=== PATIENT | male | born 2000 | race African-American/Black ===

== ENCOUNTER 2019-01-28 10:06 | Inpatient (IN) | payer OTHER ==
[~2019-01-28] VITALS: Ht 172.7 cm; Wt 75.6 kg
[2019-01-28 11:27] LABS: HEMATOCRIT 39.5 % (42.0-52.0); MEAN CORPUSCULAR HEMOGLOBIN 27.8 pg (27.0-33.0); MEAN CORPUSCULAR HGB CONC 32.9 g/dl (32.0-36.5); MEAN CORPUSCULAR VOLUME 84.6 fl (80.0-96.0); PLATELET COUNT, AUTOMATED 301 10^3/uL (150-450); RED BLOOD COUNT 4.67 10^6/uL (4.30-6.10)
[2019-01-28 12:09] LABS: ACETAMINOPHEN LEVEL < 2.0 UG/ML (10.0-30.0); ALBUMIN 4.3 GM/DL (3.2-5.2); ALT/SGPT 28 U/L (12-78); BILIRUBIN,DIRECT < 0.1 MG/DL (0.0-0.2); BILIRUBIN,TOTAL 0.4 MG/DL (0.2-1.0); BLOOD UREA NITROGEN 11 MG/DL (7-18); CALCIUM LEVEL 9.8 MG/DL (8.5-10.1); CARBON DIOXIDE LEVEL 29 MEQ/L (21-32); CHLORIDE LEVEL 108 MEQ/L (98-107); CREATININE FOR GFR 0.84 MG/DL (0.70-1.30); ETHYL ALCOHOL (ETHANOL) < 0.003 % (0.000-0.010); GLUCOSE, FASTING 95 MG/DL (70-100); POTASSIUM SERUM 3.8 MEQ/L (3.5-5.1); SALICYLATE LEVEL < 1.7 MG/DL (5.0-30.0); SODIUM LEVEL 143 MEQ/L (136-145); THYROID STIMULATING HORMONE 0.566 uIU/ML (0.463-3.98); TOTAL PROTEIN 7.9 GM/DL (6.4-8.2)
[2019-01-28 13:04] LABS: AMPHETAMINES LEVEL URINE NEGATIVE (NEGATIVE); BARBITURATES URINE NEGATIVE (NEGATIVE); BENZODIAZEPINES URINE NEGATIVE (NEGATIVE); CANNABINOIDS URINE NEGATIVE (NEGATIVE); COCAINE METABOLITE URINE NEGATIVE (NEGATIVE); METHADONE URINE NEGATIVE (NEGATIVE); OPIATES URINE NEGATIVE (NEGATIVE); PHENCYCLIDINE URINE NEGATIVE (NEGATIVE)
[2019-01-28] MEDS ORDERED: LORazepam 1 MG TAB PO PRN (16:45)
[2019-01-28] MEDS ORDERED: traZODone 50 MG TAB PO PRN (16:45)
[2019-01-28] MEDS ORDERED: MOM 30ML SUSPENSION UDC PO PRN (16:45)
[2019-01-28] MEDS ORDERED: MAALOX 30 ML SUSP *UDC PO PRN (16:45)
[2019-01-28] MEDS ORDERED: OLANZapine ORAL DISINTEGRATING TAB 5MG PO PRN (16:45)
[2019-01-28] MEDS ORDERED: ACETAMINOPHEN TAB 650MG DOSE (2X325MG) PO PRN (16:45)
[2019-01-28 17:20] VITALS: BP 124/56
[2019-01-29 06:42] VITALS: BP 109/60
[2019-01-29] MEDS: NICOTINE 21MG/24HR 1 EA TRANSDERMAL TD PRN (08:26)
[2019-01-29] MEDS ORDERED: LORazepam 2 MG TAB PO PRN (10:00)
--- NOTE | 2019-01-29 10:30 | HPEPDOC ---
General Date of Admission Jan 28, 2019 at 16:33 Date of Service: Jan 29, 2019 Chief Complaint The patient is a 18-year-old male admitted with a reason for visit of Unspecified Psychosis. 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 He also says about hearing voices and seeing things and says that his friends have been lying to him. I am seeing the patient here for medical history and physical. He denies any medical complaints today. Home Medications No Active Prescriptions or Reported Meds Allergies Coded Allergies: Kiwi (Verified Allergy, Intermediate, discomfort to throat, 01/28/19) vomiting, rash banana (Verified Allergy, Intermediate, vomiting, 01/28/19) discomfort to throat latex (Verified Allergy, Intermediate, 01/28/19) pt reports adverse reaction to bananas and kiwis Past Medical History Medical History asthma Surgical History circumcision,wisdom tooth extraction Family History Significant Family History: Diabetes (mother and sister type 1), Hypertension (mother) mother with schizophrenia, bipolar, paranoid Social History * Smoker: current smoker (vape, ecigarettes) Alcohol: occationally Drugs: marijuana (prior use), other (LSD (acid)) A-FIB/CHADSVASC A-FIB History Current/History of A-Fib/PAF?: No Review of Systems Constitutional: Denies: Chills, Fever, Night Sweats Eyes: Denies: Pain, Vision change ENT: Reports: Head Aches; Denies: Ear Pain, Dysphagia Skin: Denies: Rash, Lesions, Breakdown Pulmonary: Denies: Dyspnea, Cough Cardiovascular: Denies: Chest Pain, Palpitations, Orthopnea, Paroxysmal Noc. Dyspnea, Lt Headedness Gastrointestinal: Denies: Nausea, Vomiting, Abdominal Pain, Diarrhea Genitourinary: Denies: Dysuria, Frequency, Incontinence, Retention Hematologic: Denies: Bruising, Bleeding Excessively Musculoskeletal: Denies: Neck Pain, Back Pain, Joint Pain, Muscle Pain, Spasms Physical Examination General Exam: Positive: Alert, No Acute Distress Eye Exam: Positive: PERRLA, Conjunctiva & lids normal, EOMI; Negative: Sclera icteric ENT Exam: Positive: Atraumatic, Mucous membr. moist/pink, Pharynx Normal Neck Exam: Positive: Supple; Negative: JVD, thyromegaly Chest Exam: Positive: Clear to auscultation, Normal air movement Heart Exam: Positive: Rate Normal, Regular Rhythm, Normal S1, Normal S2; Negative: Murmurs, Rubs Abdomen Exam: Positive: Normal bowel sounds, Soft; Negative: Tenderness, Hepatospenomegaly Extremity Exam: Positive: Normal pulses; Negative: Clubbing, Cyanosis, Edema Skin Exam: Positive: Nl turgor and temperature; Negative: Breakdown, Lesion Psych Exam: Positive: Memory Intact, Oriented x 3 Vital Signs Vital Signs Date Time Temp Pulse Resp B/P (MAP) Pulse Ox O2 Delivery O2 Flow Rate FiO2 01/29/19 06:42 99.0 71 18 109/60 (76) Room Air 01/28/19 17:20 99 Laboratory Data Labs 24H Laboratory Tests 2 01/28/19 11:06: Nucleated Red Blood Cells % (auto) 0.0, Anion Gap 6L, Calcium Level 9.8, Total Bilirubin 0.4, Direct Bilirubin < 0.1, Aspartate Amino Transf (AST/SGOT) 15, Alanine Aminotransferase (ALT/SGPT) 28, Alkaline Phosphatase 74, Total Protein 7.9, Albumin 4.3, Albumin/Globulin Ratio 1.19, Thyroid Stimulating Hormone (TSH) 0.566, Salicylates Level < 1.7L, Acetaminophen Level < 2.0L, Ethyl Alcohol Level < 0.003 01/28/19 12:26: Urine Opiates Screen NEGATIVE, Urine Methadone Screen NEGATIVE, Urine Barbiturates Screen NEGATIVE, Urine Phencyclidine Screen NEGATIVE, Urine Amphetamines Screen NEGATIVE, Urine Benzodiazepines Screen NEGATIVE, Urine Cocaine Metabolite Screen NEGATIVE, Urine Cannabinoids Screen NEGATIVE CBC/BMP Laboratory Tests 01/28/19 11:06 Assessment/Plan 18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 He also says about hearing voices and sseing things and says that his friends have been lying to him. I am seeing the patient here for medica history and physical. Psychiatric problem as per [facility]. Patient does not have any active medical issues at this point. please reconsult if needed. Plan / VTE VTE Prophylaxis Ordered?: No (freely ambulatory) FELICIA COTE MD Jan 29, 2019 07:50
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
[2019-01-29 16:18] VITALS: BP 121/69
[2019-01-30 05:59] VITALS: BP 119/59
[2019-01-30] MEDS: NICOTINE 21MG/24HR 1 EA TRANSDERMAL TD PRN (11:40)
[2019-01-30 16:21] VITALS: BP 120/66
[2019-01-31 05:44] VITALS: BP 131/59
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
[2019-01-31] MEDS: NICOTINE 21MG/24HR 1 EA TRANSDERMAL TD PRN (08:50)
[2019-01-31] MEDS ORDERED: RISPERIDONE 1 MG PO SCH (09:00)
[2019-01-31] MEDS: risperiDONE 0.5 MG TAB PO SCH ×2 (10:04→21:46)
[2019-01-31 16:08] VITALS: BP 121/58
--- NOTE | 2019-02-01 06:05 | MHIPN ---
DATE OF VISIT: 01/31/2019 VITAL SIGNS: Temperature 98.6, pulse 74, respirations 18, blood pressure 131/59. CURRENT MEDICATIONS: - Abilify 5 mg daily HISTORY OF PRESENT ILLNESS: The patient was seen yesterday covering for Dr. Collier. The patient was placed on Abilify 5 mg. He disliked it. He complained that it gave him some nausea and vomiting. He was also more open about his psychotic symptoms. He reports having auditory hallucinations that are quite prominent. He describes whispers that are typically negative which wax and wane in severity. These so called whispers were quite prominent at the time of admission. He also reports hearing voices which are positive in nature. They are calming and kind. They act as a guide for him in life. They keep him from doing bad things or harming himself. He was displeased that the Abilify temporarily eliminated these positive voices. The patient states that he is still anxious. He denies temper issues. He is upset about the [place] Safety Act. He wants to be able to get a gun license at some point in the future. MENTAL STATUS EXAM: The patient is alert and oriented. Speech appears appropriate. He is not currently depressed. Anxiety appears mild. Paranoia persists with delusional beliefs. He is more open now about his auditory hallucinations which appear quite prominent. No current signs of dangerousness. No signs of cognitive deficits. Insight and judgment appear limited. DIAGNOSES: 1. Paranoid disorder, rule out paranoia schizophrenia . 2. Rule out substance induced paranoia. 3. Psychedelic substance use disorder. PLAN: Abilify discontinued, the patient switched to Risperdal 0.5 mg twice a day. The patient is to followup with Dr. Collier in the morning.
[2019-02-01] MEDS: NICOTINE 21MG/24HR 1 EA TRANSDERMAL TD PRN (08:02)
[2019-02-01] MEDS: risperiDONE 0.5 MG TAB PO SCH ×2 (08:02→21:32)
--- NOTE | 2019-02-01 11:17 | MHIPNPDOC ---
[facility] Progress Note Progress Note DATE OF SERVICE: 02/01/19 HISTORY: Patient is a 18 -year-old , male, with no previous psych history who self presented to ED endorsing SI stating he was at a friends house the the previous night and was playing Dungeons and Dragons when he began drinking and taking acid socially. Pt stated that while he was there his friends started lying to him regarding many different thing and a 1.5yr friendship ended. Stated in the ED "I'm going to at 43y/o or I could plan to initiate sooner." Stated in 10th grade he began having SI and had seen many counselors while in grade school for anger. Per [facility] staff would trail off during interview with a blank look then say "sorry, my minds blank." Pt seen and states that states that he was with "people pretending to be my friend" also in the to "get stuff on me regarding mental health." Admits he feels as if someone's watching him to gather info on him regarding "mental health." Admits he used acid yesterday and that it wasn't the first time he had used it but does not believe his current thoughts are due to the acid. States his mood is "alright and denies SI/HI" but continues to endorse paranoia of being watched. 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 Pt has been present in they day room and was encouraged to go to groups while here. Pt had no idea what Brett meant even after 4yrs and had to explain who they were to him. Discussed starting ability for anxiety and paranoia, risks/benefits discussed. Denies SI/HI, hallucinations. VITAL SIGNS: See below. NEW TEST RESULTS: See below. CURRENT MEDICATIONS: See below. MENTAL STATUS EXAMINATION: General Appearance: well groomed, appears stated age, hospital scrubs/clothing Build: average Demeanor: average Eye Contact: average Activity: average, anxious Behavior: cooperative Speech: clear, spontaneous, reg/rate,rhythm,volume Mood: euthymic, full range Mood "good" Affect: full, euthymic, congruent Thought Process: linear, logical, concrete Thought Content (Delusions): denies SI, HI, AVH, denies paranoia, endorse good thoughts/voices inside his head "my guide in life" Thought Content (Other): none reported Thought Content (Aggressive): none reported Perception (Hallucinations): none reported Perception (Other): none reported Cognition (Impairment of): none reported Cognition(Intelligence Est.): average Oriented: Awake, Alert, Oriented times three Insight: fair Judgment: fair Psychosis: Denies DIAGNOSES: Paranoid disorder r/o substance induced paranoia - Psychedelic Psychedelic substance use d/o ASSESSMENT::Pt seen and states that his mood is "good" today and that he's finding newly started risperidone yesterday beneficial as compared to abilify that he didn't like b/c it made "my mind feel empty" and all his AH, good and bad to go away. States that he likes risperidone much better as the "bad" voices/thoughts are gone, but he still has "good" voices thoughts inside his head like his conscience that he likes and feel help to "guide me" in his life toward going things. His affect appears euthymic, full range, and he no longer appears to be responding to internal stimuli, but has good concentration with linear and logical thoughts. States he slept well last night. Feels he is tolerating his medications and they're beneficial. He is attending groups and finding them helpful. He enjoys journalling on his free time. He denies SI/HI, hallucinations, delusions. Pt feels safe here. MANAGEMENT PLAN: continue plan. vistaril 25mg q6hr prn anxiety risperdal 0.5mg bid trazodone 50mg qhs prn insomnia TIME SPENT: 30 minutes. Vital Signs Vital Signs Date Time Temp Pulse Resp B/P (MAP) Pulse Ox O2 Delivery O2 Flow Rate FiO2 01/31/19 16:08 98.8 64 16 121/58 (79) 01/29/19 06:42 Room Air 01/28/19 17:20 99 Current Medications Current Medications Medications (Trade) Dose Ordered Sig/Olivia Route PRN Reason Start Time Stop Time Status Last Admin Dose Admin Acetaminophen (Tylenol Tab) 650 mg Q6HP PRN PO HEADACHE or DISCOMFORT 01/28/19 16:45 Al Hydrox/Mg Hydrox/Simethicone (Mylanta) 30 ml Q4HP PRN PO HEARTBURN/INDIGESTION 01/28/19 16:45 Aripiprazole (AbiLIFY) 5 mg DAILY PO 01/30/19 10:45 01/31/19 09:36 DC 01/30/19 11:40 Home Med (Med Rec Complete!) ASDIRECTED XX 01/28/19 15:15 01/28/19 15:06 DC Lorazepam (Ativan) 2 mg Q4HP PRN PO ANXIETY/AGITATION 01/28/19 16:45 01/29/19 09:51 DC Lorazepam (Ativan) 2 mg Q4HP PRN PO ANXIETY/AGITATION 01/29/19 10:00 Magnesium Hydroxide (Milk Of Magnesia) 30 ml DAILYPRN PRN PO CONSTIPATION 01/28/19 16:45 Nicotine (Nicoderm Cq 21mg) 1 patch DAILY PRN TD SMOKING CESSATION 01/29/19 09:00 02/01/19 08:02 Olanzapine (ZyPREXA ZYDIS) 10 mg Q4HP PRN PO ANXIETY/AGITATION 01/28/19 16:45 Risperidone (RisperDAL M-TAB) 0.5 mg BID PO 01/31/19 09:00 01/31/19 09:49 DC Risperidone (RisperDAL) 0.5 mg BID PO 01/31/19 09:00 02/01/19 08:02 Trazodone HCl (Desyrel) 50 mg QHSP PRN PO INSOMNIA 01/28/19 16:45 01/31/19 21:46 Allergies Coded Allergies: Kiwi (Verified Allergy, Intermediate, discomfort to throat, 01/28/19) vomiting, rash banana (Verified Allergy, Intermediate, vomiting, 01/28/19) discomfort to throat latex (Verified Allergy, Intermediate, 01/28/19) pt reports adverse reaction to bananas and kiwis ABUNDIO ANTHONY DO Feb 01, 2019 11:17 am
[2019-02-01 15:25] VITALS: BP 138/61
[2019-02-02 06:46] VITALS: BP 111/56
[2019-02-02] MEDS ORDERED: TRAZ-252 PO (08:46)
[2019-02-02] MEDS ORDERED: RISP0.5T21 PO (08:46)
--- NOTE | 2019-02-02 08:47 | MHDSPDOC ---
[facility] Discharge Summary Discharge Summary DATE OF ADMISSION: Jan 28, 2019 at 4:33 pm DATE OF DISCHARGE: Feb 02, 2019 DISCHARGE DIAGNOSES: Paranoid disorder r/o substance induced paranoia - Psychedelic Psychedelic substance use d/o REASON FOR ADMISSION: Patient is a 18 -year-old , male, with no previous psych history who self presented to ED endorsing SI stating he was at a friends house the the previous night and was playing Dungeons and Dragons when he began drinking and taking acid socially. Pt stated that while he was there his friends started lying to him regarding many different thing and a 1.5yr friendship ended. Stated in the ED "I'm going to at 43y/o or I could plan to initiate sooner." Stated in 10th grade he began having SI and had seen many counselors while in grade school for anger. Per [facility] staff would trail off during interview with a blank look then say "sorry, my minds blank." Pt seen and states that states that he was with "people pretending to be my friend" also in the to "get stuff on me regarding mental health." Admits he feels as if someone's watching him to gather info on him regarding "mental health." Admits he used acid yesterday and that it wasn't the first abner e he had used it but does not believe his current thoughts are due to the acid. States his mood is "alright and denies SI/HI" but continues to endorse paranoia of being watched. 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 Pt has been present in they day room and was encouraged to go to groups while here. Pt had no idea what Brett meant even after 4yrs and had to explain who they were to him. Discussed starting ability for anxiety and paranoia, risks/benefits discussed. Denies SI/HI, hallucinations. CONSULTANTS INVOLVED: none TREATMENT AND PROGRESS ON THE UNIT : Pt was admitted to [facility], seen for psychiatric assessment and started on Abilify 5mg qhs which he did not like so it was discontinued and he was started on risperidone 0.5mg bid which he found very beneficial for his AH and tolerated well. He was provided trazodone 50mg qhs prn insomnia. Pt found his medications beneficial and tolerated them well. He attended groups daily during his stay. His symptoms improved with treatment as he stated he no longer had "bad" AH/thoughts and only had "good" ones that he finds comforting and his "guide in life". On day of discharge he denied depression, anxiety, insomnia, SI/HI, "bad" hallucinations, delusions. He was discharged home after Brett meeting with follow-up at [facility]. He felt safe for discharge DISCHARGE ASSESSMENT: Pt seen and states that his mood is "good" today and that He's looking forward to going home today with his Brett States he's finding risperidone beneficial as the "bad" voices/thoughts are gone, but he still has "good" voices/thoughts inside his head like his conscience that he likes and feel help to "guide me" in his life toward going things. His affect appears euthymic, full range, and he no longer appears to be responding to internal stimuli, but has good concentration with linear and logical thoughts. States he slept well last night. Feels he is tolerating his medications and they're beneficial. He is attending groups and finding them helpful. He enjoys journalling on his free time. He denies depression, anxiety, insomnia, SI/HI, "bad" hallucinations, delusions. Pt feels safe to d/c home with his Brett today. MENTAL STATUS EXAMINATION ON DISCHARGE: General Appearance: well groomed, appears stated age, hospital scrubs/clothing Build: average Demeanor: average Eye Contact: average Activity: average Behavior: cooperative Speech: clear, spontaneous, reg/rate,rhythm,volume Mood: euthymic, full range Mood "good" Affect: full, euthymic, congruent Thought Process: linear, logical, concrete Thought Content (Delusions): denies SI, HI, AVH, denies paranoia, endorse good thoughts/voices inside his head "my guide in life" Thought Content (Other): none reported Thought Content (Aggressive): none reported Perception (Hallucinations): none reported Perception (Other): none reported Cognition (Impairment of): none reported Cognition(Intelligence Est.): average Oriented: Awake, Alert, Oriented times three Insight: good Judgment: good Psychosis: Denies MEDICATIONS ON DISCHARGE: risperdal 0.5mg bid trazodone 50mg qhs prn insomnia PLAN/FOLLOWUP ARRANGEMENTS: D/c home with [facility] with follow-up at [facility]. The amount of time spent in the coordination of care for this patient was approximately 30 minutes. Vital Signs/I&Os Vital Signs Date Time Temp Pulse Resp B/P (MAP) Pulse Ox O2 Delivery O2 Flow Rate FiO2 02/02/19 06:46 98.8 56 12 111/56 (74) 01/29/19 06:42 Room Air 01/28/19 17:20 99 Medications No Active Prescriptions or Reported Meds Allergies Coded Allergies: Kiwi (Verified Allergy, Intermediate, discomfort to throat, 01/28/19) vomiting, rash banana (Verified Allergy, Intermediate, vomiting, 01/28/19) discomfort to throat latex (Verified Allergy, Intermediate, 01/28/19) pt reports adverse reaction to bananas and kiwis ABUNDIO ANTHONY DO Feb 02, 2019 8:47 am
[2019-02-02] MEDS: risperiDONE 0.5 MG TAB PO SCH (09:00)
== END 2019-02-02 10:05 | disposition home or self-care (01) | DRG 885 ==
LOC: M ED 10:06 → M ED INP 16:33 → M PSY 17:22
PROVIDERS: ADMIT Psychiatry & Neurology Psychiatry; ATTEND Psychiatry & Neurology Psychiatry
DX: F22 Delusional disorders (principal); F16.90 Hallucinogen use, unspecified, uncomplicated; F19.94 Other psychoactive substance use, unspecified with psychoactive substance-induced mood disorder; Z91.040 Latex allergy status; Z91.018 Allergy to other foods